=== PATIENT | female | born 1960 | race Caucasian/White ===

== ENCOUNTER 2019-12-24 13:20 | Inpatient (IN) | payer BC ==
[~2019-12-24] VITALS: Ht 165.1 cm; Wt 72.6 kg
[2019-12-24] MEDS ORDERED: TRAZODONE100 MG PO (14:52)
[2019-12-24] MEDS ORDERED: PANTOPRAZOLE SO20 MG PO (14:53)
[2019-12-24] MEDS ORDERED: DAILY VITAMIN1 EAC1 PO (14:53)
[2019-12-24] MEDS ORDERED: NATURE'S BLEND F1 MG PO (14:54)
[2019-12-24] MEDS ORDERED: NORVASC5 MG PO (14:55)
[2019-12-24] MEDS ORDERED: Synthroid,Levo75 MCG PO (14:55)
[2019-12-24] MEDS ORDERED: LAMICTAL200 MG PO (14:55)
[2019-12-24] MEDS ORDERED: ZOCOR20 MG PO (14:56)
[2019-12-24] MEDS ORDERED: ALBUTEROL SULFAT8 MG INH (14:57)
[2019-12-24 15:32] VITALS: BP 152/82
--- NOTE | 2019-12-24 15:32 | NUR ---
DR. GARCIA MADE AWARE OF NEW CONSULT FOR MEDICAL MANAGEMENT. STATES TO PLACE CONSULT UNDER DR. Carin LAZAR
--- NOTE | 2019-12-24 17:36 | NUR ---
P: PATIENT ANXIOUS, TEARFUL, HANDS SHAKING. MOOD LABILE. HYPERVENTILATING, PACING IN HALLWAY. I: ONE ON ONE TO EXPRESS FEELING, ENCOURAGED DEEP BREATHING EXERCISES. R: PRN ATIVAN 1MG GIVEN PO. BP 160/80. DR. GARAY NOTIFIED. RECHECK BP IN 1 HR. URINE COLLECTED AND SENT TO LAB. PATIENT IS ALERT TO PERSON, PLACE, TIME AND SITUATION; ABLE TO VOICE NEEDS. Q 15 MINUTE SAFETY CHECKS MAINATINED. MOOD IS LABILE, TEARFUL DURING ASSESSMENT. ANXIOUS. DENIES ANY HALLUCINATIONS DELUSIONS, HI/SI. RATE PAIN 6/10. REPOSITIONING TO ASSIST RELEIVE PAIN. NO ACTUAL PLAN FOR SI. JUST WANTS TO END TO EMOTIONAL PAIN AND FUSTRATION. ONE ON ONE EFFECTIVE. PATIENT PROVIDED WITH CHANGE OF CLOTHES AND WARM BLANKET; EFFECTIVE. INDPENDENT WITH ACTIVIES OF DAILY LIVING, CONTINENT OF BOWEL AND BLADDER. SET UP FOR MEALS, INTAKES ARE GOOD. INTERACTIVE WITH NURSING STAFF. P: CONTINUE TO MONITOR MOOD AND SUICIDAL IDEATIONS. PROVIDE ONE ON ONE FOR EMOTIONAL SUPPORT. CONTRACT FOR SAFETY.
--- NOTE | 2019-12-24 17:38 | NUR ---
TOR LEYVA a 59 year old F admitted via ambulance from the ADMITTING as a voluntary admission. Arrived on unit at 1520. ALLERGIES: PCN, SULFA. Vital signs are: [id number]/82. The client signed the following forms with stated understanding: Authorization For The Release of Medical Information, Clothing List, Consent to Voluntary Admission and Hospitalization, Consent and Release Forms/Receipt of Rights, Acknowledgement of Advance Directive Information, Behavioral Health Consent Form, and Informed Consent of Medications. Admitted under the services of Dr. MARY STEELE,[facility]. A search was conducted and hazardous articles were removed. Client was oriented to the unit. MAY PEGUERO
[2019-12-24 18:06] LABS: URINE AMPHETAMINES < 1000 (1000ng/ml); URINE BARBITURATES < 200 (200ng/ml); URINE BENZODIAZEPINES < 200 (200ng/ml); URINE CANNABINOIDS (THC) < 50 (50ng/ml); URINE COCAINE < 300 (300ng/ml); URINE METHADONE < 300 (300ng/ml); URINE OPIATES > 300 (300ng/ml)
[2019-12-24 18:13] LABS: URINE PHENCYCLIDINE < 25 (25ng/ml)
[2019-12-24 18:24] LABS: BILIRUBIN NEGATIVE (NEGATIVE); BLOOD TRACE-INTACT (NEGATIVE); CLARITY SL CLOUDY (CLEAR); COLOR YELLOW (YELLOW); GLUCOSE NEGATIVE (NEGATIVE); KETONE NEGATIVE (NEGATIVE); NITRITE NEGATIVE (NEGATIVE); SPECIFIC GRAVITY 1.025 (1.005-1.030); UROBILINOGEN 0.2 E.U./dl (0.2-1.0)
[2019-12-24 18:25] LABS: CALCIUM OXALATE CRYSTALS 2+; EPITHELIAL CELLS 16-20; LEUKO ESTERASE NEGATIVE (NEGATIVE)
[2019-12-24 18:26] LABS: BACTERIA 1+; MUCOUS 2+
--- NOTE | 2019-12-25 01:38 | NUR ---
Patient alert and oriented x4. Mood anxious. Patient denies HI/SI. Patient denies hallucinations at this time. No s/s of any responding to internal stimuli noted. Patient compliant with HS medications without any difficulty. Patient said "I don't want to kill myself,I just feel frustrated." Provided 1:1 for therapeutic communication and emotional support. Patient contracted for safety. Plan to continue to encourage medication compliance. Also continue to provide emotional support and allow patient to contract for safety. Will continue to monitor moods/behaviors. Q 15 minute safety checks continued and maintained. See [facility] flowsheet for further documentation.
--- NOTE | 2019-12-25 05:39 | NUR ---
Patient slept approx. 7 hours throughout shift. Q 15 minute safety checks continued and maintained.
[2019-12-25 07:10] LABS: BASO % 0.5 % (0.0-1.0); EOS # 0.1 10*3/uL (0.0-0.4); EOS % 1.4 % (1.0-4.0); HEMATOCRIT 39.7 % (37.0-47.0); HEMOGLOBIN 13.3 g/dl (12.0-16.0); LYMPH # 3.8 10*3/uL (1.3-4.4); LYMPH % 47.9 % (27.0-41.0); MEAN CELL VOLUME 100.5 fl (81.0-99.0); MEAN CORPUSCULAR HGB 33.7 pg (27.0-31.0); MEAN CORPUSCULAR HGB CONC 33.5 g/dl (33.0-37.0); MEAN PLATELET VOLUME 9.8 fl (9.6-12.3); MONO # 0.7 10*3/uL (0.1-1.0); MONO % 8.2 % (3.0-9.0); NEUT # 3.3 10*3/uL (2.3-7.9); NEUT % 41.6 % (47.0-73.0); PLATELET COUNT AUTOMATED 209 10*3/uL (130-400); RED BLOOD COUNT 3.95 10*6/uL (4.10-5.10); RED CELL DISTRI WIDTH 13.5 % (0-14.5); WHITE BLOOD COUNT 7.9 10*3/uL (4.8-10.8)
[2019-12-25 07:28] LABS: ALBUMIN 3.3 gm/dl (3.1-4.5); ALKALINE PHOSPHATASE 39 U/L (45-117); BUN 22 mg/dl (7-24); CHLORIDE 110 mmol/L (98-107); CHOLESTEROL 216 mg/dL (<200); CREATININE 0.91 mg/dL (0.55-1.02); POTASSIUM 3.9 mmol/L (3.5-5.1); SGOT/AST 47 IU/L (3-35); SGPT/ALT 74 U/L (12-78); SODIUM 143 mmol/L (136-145); TOTAL PROTEIN 7.2 gm/dL (6.4-8.2); TRIGLYCERIDES 170 mg/dl (<150); VLDL CHOLESTEROL 34 mg/dL (6-40)
[2019-12-25 07:36] LABS: HDL CHOLESTEROL 104 mg/dl (40-60); LDL CHOLESTEROL 78 mg/dL (9-159); THYROID STIM HORMONE (HS) 0.413 uIU/ml (0.358-4.75)
[2019-12-25 07:52] VITALS: BP 141/76
--- NOTE | 2019-12-25 08:00 | NUR ---
Treatment Plan meeting was held with Dr. Self, LANE Huitron, RN, AT, VICE PRESIDENT OF FINANCE-S and Correspondent. Plan for discharge Next week unless Pt. requests earlier discharge then Possible /Wednesday.
--- NOTE | 2019-12-25 11:52 | NUR ---
AM GROUP ASSESSED PT AND HAD A LENGTHY 1:1 WHERE PT VENTED AND WAS GIVEN THE OPPORTUNITY TO TALK. PT DID NOT ATTEND THE MORNING GROUP BUT STAYED IN HER ROOM STATING THAT SHE WAS TIRED.
--- NOTE | 2019-12-25 12:23 | NUR ---
PT REQUESTED IMMODIUM THRESS TIMES A DAY. AND A LIDOCAINE PATCH. PT STATED SHE IS HAVING BACK PAIN RATED 9 OUT OF 10. TYLENOL 650MG PROVIDED. DR LEWIS INFORMED OF PT'S REQUESTS. PT STATED SHE TAKES 1600MG ALEVE AT ONE TIME AT HOME. MEDICATION EDUCATION PROVIDED.
--- NOTE | 2019-12-25 13:59 | NUR ---
Started inpatient mental health authorization. Pending ref # [id number]. Confidential voicemail with initial clinical left for Yuliana at [phone]. Awaiting return call.
--- NOTE | 2019-12-25 14:27 | NUR ---
Spoke to Yuliana at [facility]. IP 4 days jorge. Auth # [id number]. NRD 12/27.
[2019-12-25 15:13] LABS: VITAMIN D, 25-HYDROXY 30.3 ng/mL (30-100)
--- NOTE | 2019-12-25 15:42 | NUR ---
PM GROUP PT ATTENDED AND PARTICIPATED IN ALL GROUP ACTIVITIES. PT WAS TALKATIVE AND ON TASK. PT EXPRESSED NO SUICIDAL IDEATIONS WHILE IN GROUP.
--- NOTE | 2019-12-25 15:46 | NUR ---
P: SOMATIC COMPLAINTS DIARRHEA, PAIN. PT STATED SHE TOOK 1600MG IBUPROFEN AT A A TIME. STATED HE HAD 6 BOWEL MOVEMENTS TODAY AND REQUESTED IMMODIUM. I: PROVIDED 1:1 FOR THERAPEUTIC COMMUNICATIONS. MEDICATION EDUCATION COMPLETED. EXPLAINED TO PT WE NEED TO SEE BOWEL MOVEMENTS BEFORE MEDICATION CAN BE GIVEN. REDIRECTED. PRN TYLENOL GIVEN OR PAIN. OFFERED NONPHARMACOLOGICAL INTERVENTIONS FOR PT TO TRY TO REDUCE PAIN. MONITOR BEHAVIORS WITH Q15 MINUTE SAFETY CHECKS. R: PT DID TRY NONPHARMACOLOGICAL INTERVENTIONS. PT HAS HAD NO FURTHER COMPLAINTS OF PAIN OR DIARRHEA. P: CONTINUE TO OFFER MEDICATION EDUCATION. PROVIDE 1:1 FOR THERAPEUTIC COMMUNICATION. CONTINUE TO MONITOR BOWEL MOVEMENTS. CONTINUE TO MONITOR BEHAVIORS WITH Q15 MINUTE SAFETY CHECKS. SEE [facility] FLOWSHEET FOR SPECIFIC MONITORING.
[2019-12-25 19:47] VITALS: BP 142/78
--- NOTE | 2019-12-25 20:42 | NUR ---
EVENING/POSITIVE SELF-TALK PT ATTENDED AND PARTICIPATED IN ALL ACTIVITY. PT PLEASANT AND ON TASK WITH NO SUICIDAL IDEATIONS EXPRESSED AT THIS TIME. PT WILL CONTINUE TO ATTEND AND PARTICIPATE IN FUTRUE GROUP SESSIONS TO BEST OF PT ABILITY.
--- NOTE | 2019-12-25 22:31 | NUR ---
AWOKE HAVING ANXIETY ATTACK. SWINGING ARMS, RUBBING ARMS AND PACING. UNKNOWN REASON FOR ANXIETY. PACING IN DININGROOM NOW. WILL MONITOR
--- NOTE | 2019-12-25 23:50 | NUR ---
ATIVAN APPEARS EFFECTIVE. RESTING QUIET IN BED WITH EYES CLOSED
--- NOTE | 2019-12-26 01:56 | NUR ---
24 HR chart check completed.
[2019-12-26 07:47] VITALS: BP 133/75
--- NOTE | 2019-12-26 08:00 | NUR ---
Treatment Plan meeting was held with Dr. Self, RN, AT, ACCOUNT DEVELOPMENT REPRESENTATIVE-S and Log Chain Worker. Plan for discharge at the end of the week or Next week depending on Stability. Pt. will return home with Follow Up.
--- NOTE | 2019-12-26 08:34 | NUR ---
DR LEWIS ON UNIT TO ASSESS PT, UPDATE PROVIDED.
--- NOTE | 2019-12-26 09:36 | NUR ---
PATIENT RECIEVED THIAMINE 100MG IM IN RIGHT DELTOID AND TOLERATED WELL.
--- NOTE | 2019-12-26 11:39 | NUR ---
AM GROUP/MUSIC THERAPY PT CHOSE NOT TO ATTEND MORNING GROUP THERAPY. PT WAS IN BED RESTING.
--- NOTE | 2019-12-26 12:11 | NUR ---
P: PT MOOD IS DEPRESSED. PT INTERMITTENTLY TEARFUL. PT ISOLATIVE TO SELF AT TIMES. PT REPORTS FEELING ANXIOUS AT TIMES. I: PROVIDE EMOTIONAL SUPPORT AND 1:1 FOR PT TO VOICE FEELING, ENCOURAGE MED COMPLIANCE AMD PROVIDE MED EDUCATION, ENCOURAGE GROUP PARTICIPATION AND SOCIALIZATION, PROVIDE LOW STIUALTION ENVIRONMENT FOR PT TO CALM. R: PT ALERT TO PERSON, PLACE, TIME AND SITUTION. PT MED COMPLIANT WITHOUT DIFFICULTY, MED EDUCATION PROVIDED. PT CALM, MOOD REMAINS DEPRESSED. PT REMAINS INTERMITTENTLY TEARFUL. NO HALLUCINATIONS OR DELUSIONS NOTED. PT DENIES ANY SUICIDAL THOUGHTS. PT AMBULATORY THROGHOUT UNIT, GAIT STEADY. PT CONTINENT OF BOWEL AND BLADDER. P: MONITOR PT BEHAVIORS ON Q15 MIN SAFETY CHECKS, ENCOURAGE MED COMPLAINCE AND PROVIDE MED EDUCATION, PROVIDE EMOTIONAL SUPPORT AND 1:1 FOR PT TO VOICE FEELINGS, ENCOURAGE GROUP PARTICIPATION AND SOCIALIZATION.
--- NOTE | 2019-12-26 15:17 | NUR ---
Group therapy this afternoon. Discussed life stressors, negative coping skills, and positive coping skills. Patients named positive coping skills. Provided education about the benefits of positive coping skills. Hand-outs were also provided. Pt participated fully in the discussion. She displayed intermittent tearfulness as she shared. Pt was supportive of her peers. She was able to name several positive coping skills.
--- NOTE | 2019-12-26 15:37 | NUR ---
PM GROUP PT DID NOT ATTEND AFTERNOON GROUP THERAPY. PT WAS IN A SESSION WITH VACUUM APPLICATOR OPERATOR.
[2019-12-26 19:49] VITALS: BP 146/79
--- NOTE | 2019-12-26 20:37 | NUR ---
EVENING/MUSIC/YAHTZEE PT ATTENEDED AND PARTICIPATED IN ALL ACTIVITY. PT TEARFUL ON AND OFF THORUGHOUT GROUP STATING "I'VE BEEN WEEPY TODAY". PT EASILY ON BACK ON TASK AND LAUGHING WITH PEERS AFTER TEARFUL SPURTS. PT WILL CONTINUE TO ATTEND AN DPARTICIPATE IN FUTRUE GROUP SESSIONS TO THE BEST OF ABILITY.
--- NOTE | 2019-12-26 22:12 | NUR ---
NO ADVERSE BEHAVIORS NOTED. PATIENT ALERT AND ORIENTED X4. PT CALM, COOPERATIVE, AND INTERACTIVE. PT SAT IN DINING ROOM WITH PEERS TO WATCH A MOVIE AND HAD SNACK. DURING 1:1 PATIENT STATED THAT SHE WAS DOING OKAY TODAY WITH NO COMPLAINTS. PT DENIES SUICIDAL IDEATIONS, PT INFORMED THAT IF THOUGHTS ARISE TO HARM SELF TO NOTIFY STAFF, PT CONTRACTED FOR SAFETY. PT ALSO DENIES HI, HALLUCINATIONS, OR PAIN. PT MEDICATION COMPLIANT WITHOUT DIFFICULTY AFTER REVIEW. PT CURRENTLY LAYING DOWN WITH EYES CLOSED, RESPIRATIONS EASY AND REGULAR, NO SIGNS OR SYMPTOMS OF DISTRESS NOTED. PLAN IS TO CONTINUE MONITOR MOOD AND BEHAVIORS. PROVIDE 1:1 WITH THERAPEUTIC INTERVENTIONS. PROVIDE EMOTIONAL SUPPORT NEEDED. ENCOURAGE MEDICATION COMPLIANCE AND EDUCATE. MAINTAIN Q 15 MIN CHECKS.
--- NOTE | 2019-12-26 23:49 | NUR ---
24 HOUR CHART CHECK COMPLETED.
--- NOTE | 2019-12-27 08:00 | NUR ---
Treatment Plan meeting was held with Dr. Self RN, SOLVENT MIXER-S and Used Car Make Ready Mechanic. Plan for discharge Wednesday/Wednesday depending on Stablility.
[2019-12-27 08:06] VITALS: BP 147/77
--- NOTE | 2019-12-27 08:31 | NUR ---
DR LEWIS ON UNIT TO ASSESS PT, UPDATE PROVIDED.
--- NOTE | 2019-12-27 12:47 | NUR ---
Met with pt individually. Pt reports that she can notice a difference in her mood and feels that she is doing better. Pt asked about applying for Social Security disability. Educated pt about the process. Pt voiced understanding. Pt spoke about her marriage. Discussed pt's ability to change herself and not others. Discussed pt focusing on beating her dependence on ETOH, self-care, and working on improving herself. Offered to pt that as pt's emotional state improves and pt feels better about herself, it should become more clear to pt what she truly wants for her future. Pt voiced understanding. When asked, pt shared that she believes that she has a good counselor that pt is working with in the community.
--- NOTE | 2019-12-27 14:49 | NUR ---
Continued review stay clinical left on confidential voicemail for Yuliana duckworth [place]. Awaiting response.
--- NOTE | 2019-12-27 17:03 | NUR ---
NO ADVERSE MOODS OR BEHAVIORS NOTED AT THIS TIME. PT ALERT TO PERSON, PLACE, TIME AND SITUATION. PT CLAM, MOOD IS STABLE. PT PLEASANT, INTEARACTIVE WITH STAFF AND PEERS. NO HALLUCINATIONS OR DELUSIONS NOTED. PT DENIES ANY SUICIDAL THOUGHTS. PT AMBULATORY THROUGHOUT UNIT, GAIT STEADY. PT CONTINENT OF BOWEL AND BLADDER. PLAN IS TO MONITOR PT BEHAVIORS ON Q15 MIN SAFETY CHECKS, ENCOURAGE MED COMPLIANCE AND PROVIDE MED EDUCATION, PROVIDE EMOTIONAL SUPPORT AND 1:1 FOR PT TO VOICE FEELINGS, ECNOURAGE GROUP PARTICIPATION AND SOCIALIZATION.
[2019-12-27 19:47] VITALS: BP 146/76
--- NOTE | 2019-12-27 23:00 | NUR ---
PT SOMATIC. RECEIVED HS MEDICATIONS, WALKING UP AND DOWN HALLS, STATES "I AM STUMBLING AND I FEEL LIKE I HAVE BUBBLES IN MY MOUTH". PT ENCOURAGED TO SIT DOWN AND REST AND CONSUME FLUIDS. PT STATES SHE IS FEELING BETTER. PT CURRENTLY DENYING ANXIOUSNESS, DEPRESSED MOOD. STATES "I REALLY FEEL GOOD". WILL CONTINUE TO MONITOR PT FOR CHANGE IN CONDITION. WILL CONTINUE TO MONITOR MOODS AND BEHAVIORS. Q15 MIN MONITORING PER POLICY FOR SAFETY.
--- NOTE | 2019-12-28 05:42 | NUR ---
pt slept approximately 7 hours this shift
--- NOTE | 2019-12-28 08:00 | NUR ---
Treatment Plan meeting was held with Dr. Self, RN, AT, PROP DRAWER-S and Negative Cleaner in attendance. Plan for discharge Wed/Wednesday when Stable.
[2019-12-28 08:18] VITALS: BP 152/72
--- NOTE | 2019-12-28 10:30 | NUR ---
ADVISED THIS RN THAT PT REPORTED TO HIM THAT LAST EVENING SHE EXPERIENCED A PERIOD OF TIME WHERE HER HEART WAS RACING AND "RADIATING INTO HER JAW" WELL LIGHT HEADEDNESS. PT STATED TO THAT SHE DID NOT REPORT THIS TO RECOOPERER STAFF AND THAT WHEN THEY CHECKED HER VITALS AT UNIT ROUTINE INTERVALS THEY WERE WNL. STATES THESE SYMPTOMS COULD BE ANXIETY RELATED BUT REQUESTS THIS RN CONTACT INTERNAL MEDICINE HOSPITALIST AND MAKE AWARE OF THE ABOVE. CALL PLACED TO , RESIDENT WORKING WITH TODAY AND MADE AWARE OF THE ABOVE.
--- NOTE | 2019-12-28 11:48 | NUR ---
AM GROUP PT WAS IN A PRIVATE GROUP WITH LIKE PEERS WITH THE SECURITY INCIDENT RESPONSE SPECIALIST.
--- NOTE | 2019-12-28 12:01 | NUR ---
SPOKE WITH DR MCGOWAN AT [phone] RE: PT TROPONIN LEVELS ARE NEGATIVE AND KG RESULTS ARE IN THE COMPUTER FOR REVIEW.
--- NOTE | 2019-12-28 14:38 | NUR ---
P- PT C/O "BUBBLING IN MY MOUTH" AND "SLURRED WORDS". I- ORIENTATION, MOOD AND BEHAVIORS ASSESSED. ASSESSED PT FOR SI/HI, INTENT OR PLAN. ASSESSED PT FOR S/S HALLUCINATIONS, PARANOIA AND/OR DELUSIONS. MEDICATIONS ADMINISTRATIONS PER PHYSICIAN'S ORDERS. ASSISTANCE WITH ADL CARE PROVIDED NEEDED. ENCOURAGED PT TO ATTEND AND PARTICIPATE IN [facility] GROUPS AND ACTIVITIES. R- PT IS ALERT AND ORIENTED X4. MEMORY INTACT. RESPS EASY AND EVEN ON ROOM AIR. MOOD IS STABLE, AFFECT BROAD RANGE AND APPRROPRIATE. PT DENIES FEELING SAD, DEPRESSED OR ANXIOUS. PT STATES "I FEEL REALLY GOOD, I'M REALLY HAPPY". PT DENIES SI/HI, INTENT OR PLAN. CONTRACTS FOR SAFETY. PT DENIES HALLUCINATIONS, NO RESPONSE TO INTERNAL STIMULI NOTED. NO PARANOIA OR DELUSIONS NOTED. MED COMPLIANT WITHOUT DIFFICULTY. INTERACTS APPROPRIATELY WITH STAFF AND PEERS. NO SLURRING OF WORDS OF BUBBLING OF THE MOUTH NOTED PER PT REPORT. AND ARE AWARE OF PT'S COMPLAINTS. LABS ORDERED FOR TOMORROW AM. NO DISTRESS NOTED. P- PLAN TO CONTINUE CURRENT TREATMENT, CONTINUE TO MONITOR MOOD AND BEHAVIORS, PROVIDE APPROPRIATE REORIENTATION, REDIRECTION AND 1:1 NEEDED. CONTINUE TO ENCOURAGE MEDICATION COMPLIANCE WELL GROUP ATTENDANCE AND PARTICIPATION.
--- NOTE | 2019-12-28 15:41 | NUR ---
PM GROUP PT ATTENDED AND PARTICIPATED IN ALL ACTIVITIES FOR AFTERNOON GROUP. PT WAS LAUGHING AND JOKING WITH PEERS AND STAFF AND EXPRESSED NO ANXIETY OR SUICIDAL IDEATIONS.
--- NOTE | 2019-12-28 15:53 | NUR ---
Group therapy this AM. Pt partcipated fully in discussion about gratitude and the power of thankfulness. Discussed principles of gratitude and action to incorporate the principles. Discussed the use of a gratitude journal. Hand-outs provided and gratitude sheets provided. Pt was supportive of her peers.
[2019-12-28 20:00] VITALS: BP 137/75
--- NOTE | 2019-12-28 21:44 | NUR ---
PATIENT ALERT AND ORIENTED. PATIENT WITH WITH SHORT TERM OR MACHINIST INSTRUCTOR MEMORY DEFICITS. PATIENT WITH NO RESPIRATORY DISTRESS. PATIENT STATING "I FEEL A LOT BETTER TODAY". PATIENT MEDICATION COMPLIANT. PATIENT WITH NO HALLUCINATIONS OR DELUSIONS. PATIENT WITH NO SUICIDAL OR HOMICIDAL IDEATIONS. PATIENT REFUSED NOURISHMENT AT HS BUT PROVIDED FLUIDS. PATIENT AMBULATORY ON UNIT WITH STEADY GAIT AND WITHOUT ASSISTIVE DEVICE. PATIENT STABLE WITH NO COMPLIANTS AT HS. SEE [facility] FLOW SHEET FOR SPECIFIC MONITORING
--- NOTE | 2019-12-29 05:56 | NUR ---
PATIENT SLEPT 8 HOURS OF UNINTERRUPTED SLEEP THROUGHOUT SHIFT. Q 15 MINUTE CHECKS MAINTAINED. 24 HR chart check completed.
[2019-12-29 06:22] LABS: BASO # 0.1 10*3/uL (0.0-0.1); BASO % 0.7 % (0.0-1.0); EOS # 0.1 10*3/uL (0.0-0.4); EOS % 1.6 % (1.0-4.0); HEMATOCRIT 37.9 % (37.0-47.0); HEMOGLOBIN 12.7 g/dl (12.0-16.0); LYMPH # 2.8 10*3/uL (1.3-4.4); LYMPH % 38.1 % (27.0-41.0); MEAN CELL VOLUME 101.3 fl (81.0-99.0); MEAN CORPUSCULAR HGB CONC 33.5 g/dl (33.0-37.0); MEAN PLATELET VOLUME 9.9 fl (9.6-12.3); MONO # 0.7 10*3/uL (0.1-1.0); MONO % 8.8 % (3.0-9.0); NEUT # 3.7 10*3/uL (2.3-7.9); NEUT % 50.5 % (47.0-73.0); PLATELET COUNT AUTOMATED 211 10*3/uL (130-400); RED BLOOD COUNT 3.74 10*6/uL (4.10-5.10); RED CELL DISTRI WIDTH 13.2 % (0-14.5); WHITE BLOOD COUNT 7.4 10*3/uL (4.8-10.8)
[2019-12-29 06:54] LABS: BUN 18 mg/dl (7-24); CHLORIDE 109 mmol/L (98-107); CREATININE 0.84 mg/dL (0.55-1.02); POTASSIUM 3.9 mmol/L (3.5-5.1); SODIUM 142 mmol/L (136-145)
--- NOTE | 2019-12-29 08:00 | NUR ---
Treatment Plan meeting was held with LANE Huitron, RN, AT, HEAD OF SCIENCE-S and Early Childhood Lead Teacher. Plan for discharge Wednesday with return home and follow up scheduled.
[2019-12-29 08:17] VITALS: BP 148/78
--- NOTE | 2019-12-29 11:48 | NUR ---
AM GROUP PT ATTENDED MORNING GROUP THERAPY AND PARTICIPATED IN ALL ACTIVITIES. PT WAS ENGAGED AND ON TOPIC. PT EXPRESSED NO SUICIDAL IDEATIONS WHILE IN GROUP.
--- NOTE | 2019-12-29 13:37 | NUR ---
Group session co-facilitated with Destiny Moore, administrative services coordinator. Topic of group: Ria's Day, types of love, and self-love/self-care. Pt attended and participated fully. Pt shared openly and was supportive of her peers. Pt is future-oriented as she spoke of plans of continuing to work on improving her emotional state and mental health when she returns home.
--- NOTE | 2019-12-29 14:29 | NUR ---
PATIENT IS ALERT AND ORIENT TO PERSON, PLACE, TIME AND SITUATION; ABLE TO VOICE NEEDS. MOOD IS STABLE. DENIES ANY HALLUCINATIONS, DELUSIONS, HI/SI OR PAIN. NO RESPONSE TO INTERNAL STIMULI. MEDICATION COMPLAINT. Q 15 MINUTE SAFETY CHECKS MAINTAINED. INTERACTIVE WITH STAFF AND OTHERS PATIENTS. PARTICIPATES IN GROUP SESSION. INDPENDENT WITH ACTIVITIES OF DAILY LIVING, CONTINENT OF BOWEL AND BLADDER, SET UP FOR MEALS, INTAKES ARE GOOD WITH ADEQUATE FLUIDS. AMBULATORY WITH STEADY GAIT. CONTINUE TO MONITOR FOR SUICIDAL IDEATIONS AND DEPRESSED MOOD.
--- NOTE | 2019-12-29 14:59 | NUR ---
Continued review stay clinical left on Yuliana at [facility] confidential voicemail.
--- NOTE | 2019-12-29 15:21 | NUR ---
IP 1 additional day jorge per Yuliana at [facility]. NRD 12/30
--- NOTE | 2019-12-29 15:33 | NUR ---
PM GROUP PT ATTENDED AFTERNOON GROUP THERAPY AND PARTICIPATED IN ALL ACTIVITIES. PT EXPRESSED NO SUICIDAL IDEATIONS WHILE IN GROUP
--- NOTE | 2019-12-29 15:46 | NUR ---
Shift chart check completed.
[2019-12-29 20:13] VITALS: BP 139/77
--- NOTE | 2019-12-30 01:01 | NUR ---
NO ADVERSE BEHAVIORS NOTED. PATIENT ALERT AND ORIENTED X4. PT CALM, COOPERATIVE, AND INTERACTIVE. PT SAT IN DINING ROOM WITH PEERS TO WATCH A MOVIE AND HAD SNACK. DURING 1:1 PATIENT STATED THAT SHE WAS DOING OKAY TODAY, READY TO GO HOME. PT DENIES SUICIDAL IDEATIONS, PT INFORMED THAT IF THOUGHTS ARISE TO HARM SELF TO NOTIFY STAFF, PT CONTRACTED FOR SAFETY. PT ALSO DENIES HI, HALLUCINATIONS, OR PAIN. PT MEDICATION COMPLIANT WITHOUT DIFFICULTY AFTER REVIEW. PT CURRENTLY LAYING DOWN WITH EYES CLOSED, RESPIRATIONS EASY AND REGULAR, NO SIGNS OR SYMPTOMS OF DISTRESS NOTED. PLAN IS TO CONTINUE MONITOR MOOD AND BEHAVIORS. PROVIDE 1:1 WITH THERAPEUTIC INTERVENTIONS. PROVIDE EMOTIONAL SUPPORT NEEDED. ENCOURAGE MEDICATION COMPLIANCE AND EDUCATE. MAINTAIN Q 15 MIN CHECKS.
--- NOTE | 2019-12-30 05:28 | NUR ---
24 HOUR CHART CHECK COMPLETED.
--- NOTE | 2019-12-30 06:02 | NUR ---
PATIENT OBSERVED ON Q 15 MIN CHECKS TO HAVE SLEPT APPROX 7 HOURS THROUGHOUT THE NIGHT WITH NO AWAKENINGS OR SIGNS AND SYMPTOMS OF DISTRESS NOTED.
[2019-12-30 07:50] VITALS: BP 138/70; BP 167/80
--- NOTE | 2019-12-30 08:04 | NUR ---
Patient eating breakfast in dining room with peers at this time. Respirations easy and regular. Vital signs stable. No overt distress. CHANELL MALLOY PMJOSE- ON UNIT TO SEE PT AT THIS TIME. UPDATE GIVEN.
--- NOTE | 2019-12-30 08:50 | NUR ---
ON UNIT TO SEE PT AT THIS TIME.
--- NOTE | 2019-12-30 11:56 | NUR ---
AM GROUP/AFFIRMATIONS/MUSIC PT ATTENDED AND PARTICIPATED IN GROUP. PT PLEASANT AND ON TASK WITH NO S.I. EXPRESSED AT THIS TIME.
--- NOTE | 2019-12-30 12:32 | NUR ---
P- PT STATES SHE IS FEELING "REALLY GOOD, I THINK I'M READY TO GO HOME SOON". HOWEVER, PT REPORTS CONTINUED DIFFICULTY SLEEPING. PT STATES "I HAVEN'T SLEPT WELL FOR PROBABLY A YEAR". I- ORIENTATION, MOOD AND BEHAVIORS ASSESSED. ASSESSED PT FOR SI/HI, INTENT OR PLAN. ASSESSED PT FOR S/S HALLUCINATIONS, PARANOIA AND/OR DELUSIONS. MEDICATIONS ADMINISTERED PER PHYSICIAN'S ORDERS. ASSISTANCE WITH ADL CARE PROVIDED NEEDED. ENCOURAGED PT TO ATTEND AND PARTICIPATE IN [facility] MILIEU GROUPS AND ACTIVITIES. R- PT IS ALERT AND ORIENTED X4. MEMORY INTACT. RESPS EASY AND EVEN ON ROOM AIR. MOOD STABLE, AFFECT BROAD RANGE AND APPROPRIATE. SPEECH IS WNL AND COHERENT, ABLE TO MAKE NEEDS KNOWN WITHOUT DIFFICULTY. PT DENIES SI/HI, INTENT OR PLAN. PT DENIES HALLUCINATIONS, NO RESPONSE TO INTERNAL STIMULI NOTED. NO PARANOIA OR DELUSIONS NOTED. PT STATES SHE FEELS "REALLY GOOD" AND STATES "I THINK I'M READY TO GO HOME SOON". PT DID REPORT POOR SLEEP WHICH SHE STATES HAS BEEN A CHRONIC PROBLEM FOR OVER A YEAR. PT DISCUSSED THIS CONCERN WITH [facility]- WITH NEW MEDICATION ORDER GIVEN FOR HS TO AIDE WITH SLEEP. PT DENIES ANY OTHER COMPLAINTS OR CONCERNS. PT IS AMBULATORY WITH STEADY GAIT, INDEPENDENT WITH ADLS, CONTINENT OF BOWEL AND BLADDER. INTERACTS WELL WITH STAFF AND PEERS. NO DISTRESS NOTED. P- PLAN TO CONTINUE CURRENT TREATMENT, CONTINUE TO MONITOR MOOD AND BEHAVIORS, PROVIDE APPROPRIATE REORIENTATION, REDIRECTION AND 1:1 NEEDED. CONTINUE TO ENCOURAGE MEDICATION COMPLIANCE WELL GROUP ATTENDANCE AND PARTICIPATION.
--- NOTE | 2019-12-30 15:55 | NUR ---
PM GROUP/AFFIRMATIONS/MOVIE PT ATTENDED AND PARTICIPATED IN ALL GROUP ACTIVITY'S. PT PLEASANT AND ON TASK WITH NO S.I. EXPRESSED AT THIS TIME.
[2019-12-30 20:00] VITALS: BP 143/72
--- NOTE | 2019-12-30 22:59 | NUR ---
P--DEPRESSION I--REVIEWED MEDICATIONS. STAFF PROVIDED SNACK AND FLUIDS. OFFERED 1:1 TIME. PROVIDED EMOTIONAL SUPPORT NEEDED R--I FEEL REALLLY GOOD. READY TO GO HOME. I HAD ANOTHER GOOD DAY. P--MONITOR FOR CHANGES IN MOOD/BEHAVIOR. MONITOR Q 15 MINUTES AND PRN FOR SAFETY.
--- NOTE | 2019-12-31 01:27 | NUR ---
24 HR chart check completed.
[2019-12-31 08:00] VITALS: BP 146/70
--- NOTE | 2019-12-31 12:13 | NUR ---
AM GROUP/LEISURE SKILLS PT ATTENDED AND PARTICIPATED IN ALL GROUP ACTIVITY. PT PLEASANT AND ON TASK WITH NO SUICIDAL IDEATIONS EXPRESSED.
--- NOTE | 2019-12-31 18:21 | NUR ---
NO ADVERSE BEHAVIORS NOTED THIS SHIFT. BEHAVIORS MONITORED WITH Q15 MINUTE SAFETY CHECKS. SEE [facility] FLOWSHEET FOR SPECIFIC MONITORING.
[2019-12-31 19:51] VITALS: BP 157/72
--- NOTE | 2019-12-31 21:36 | NUR ---
P--DEPRESSION RESOLVED I- 1:1 ABOUT LEAVING TOMORROW AND SETTING PLANS FOR DAILY INTERATION WITH OTHERS. REVIEWED COPING SKILLS TO USE AT HOME. EMOTIONAL SUPPORT PROVIDED REVIEWED MEDICATIONS. SNACK R-- I AM SO EXCITED TO GO HOME. I HAVE MY PLANS SET UP. I LOVE TO WATCH SOAPS. DENIES SUICIDAL IDEATIONS OR DEPRESSIVE STATE P--MONITOR FOR CHANGES IN BEHAVIOR/MOOD AND Q15 MINS AND PRN FOR SAFETY
--- NOTE | 2020-01-01 02:12 | NUR ---
24 HR chart check completed.
[2020-01-01] MEDS ORDERED: ROZEREM8 MG PO (07:35)
[2020-01-01] MEDS ORDERED: TIZANIDINE HCL4 MG PO (07:35)
[2020-01-01] MEDS ORDERED: VITAMIN B-1100 M1 PO (07:35)
[2020-01-01] MEDS ORDERED: LAMOTRIGINE100 MG PO (07:35)
[2020-01-01] MEDS ORDERED: HYDROXYZINE PAM25 M1 PO (07:35)
[2020-01-01] MEDS ORDERED: MIRTAZAPINE15 M2 PO (07:35)
[2020-01-01] MEDS ORDERED: MINIPRESS1 M1 PO (07:35)
[2020-01-01 07:44] VITALS: BP 150/71
--- NOTE | 2020-01-01 07:45 | NUR ---
Patient eating breakfast in dining room with peers at this time. Pt offers no complaints. Respirations easy and regular. Vital signs stable. No overt distress. [facility] on unit to see pt at this time, update given.
--- NOTE | 2020-01-01 08:00 | NUR ---
Treatment Plan meeting was held with LANE Huitron, RN, AT, SENIOR STOCK PLAN ADMINISTRATOR-S and Cafeteria Monitor. Plan for discharge today with return home. Follow Up appointments have been scheduled.
--- NOTE | 2020-01-01 08:20 | NUR ---
ON UNIT TO SEE PT AT THIS TIME. MADE AWARE OF DISCHARGE FOR TODAY AROUND 11AM.
[2020-01-01] MEDS ORDERED: PANTOPRAZOLE SO40 MG PO (08:32)
--- NOTE | 2020-01-01 10:20 | NUR ---
NO ADVERSE MOODS OR BEHAVIORS THIS SHIFT. PT IS ALERT AND ORIENTED X4. MEMORY INTACT. RESPS EASY AND EVEN ON ROOM AIR. PT STATES HER MOOD "REALLY GOOD, REALLY HAPPY". PT DENIES FEELING SAD, DEPRESSED OR ANXIOUS. DENIES SI/HI, INTENT OR PLAN. DENIES HALLUCINATIONS, NO RESPONSE TO INTERNAL STIMULI NOTED. NO PARANOIA OR DELUSIONS NOTED. PT STATES SHE IS READY FOR DISCHARGE. PT IS SCHEDULED FOR DISCHARGE TODAY. DISCHARGE PAPERWORK COMPLETED AND REVIEWED WITH PT WITH PT'S STATED UNDERSTANDING OF ALL. ALL QUESTIONS ANSWERED. NO DISTRESS NOTED. Q15 MIN MONITORING CONTINUES PER POLICY.
--- NOTE | 2020-01-01 11:10 | NUR ---
Discharge instructions reviewed with patient/family. Patient receptive and verbalizes understanding. Follow-up care arranged. Written instructions given to patient/family. CHANELL MALLOY pt left the unit in stable condition at 11:10am via wheelchair escort with [facility]. all personal belongings were sent with the pt.
--- NOTE | 2020-01-01 14:37 | NUR ---
Patient discharged today to home with her . Follow-up was scheduled with [facility] practicing with psychiatrist Dr Pacheco. An attempt was made to schedule counseling for pt in the same mental health office. However, Dr Pacheco must first evaluate pt for need. While at [facility], pt's mood improved and anxiety lessened. Pt was future-oriented at time of discharge. Pt participated in programming and was social with peers and staff.
--- NOTE | 2020-01-01 15:43 | NUR ---
Left continued review stay and discharge clinical on the confidential voicemail of Yuliana duckworth [place]. Awaiting return call. LCD 12/29. Ref # [id number]
--- NOTE | 2020-01-02 07:17 | NUR ---
Received VM from Yuliana at [facility]. Returned call and left continued review stay clinical and discharge appt details of her confidential voicemail. Awaiting return call.
--- NOTE | 2020-01-02 11:44 | NUR ---
Received VM from Yuliana at [facility] regarding patient needing to go for peer to peer, [facility] 12/29. Awaiting call to set up peer to peer. Received VM from [facility] to set up peer to peer. Returned call to [facility]. Peer to peer set up for tomorrow 01/03 at 1pm. 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
--- NOTE | 2020-01-05 10:58 | NUR ---
Received call from Yuliana [facility] [place]. Discharge clinical given.
== END 2020-01-01 11:10 | disposition home or self-care (01) | DRG 885 ==
LOC: 3N 13:20
PROVIDERS: Family Medicine; ADMIT Psychiatry & Neurology Psychiatry
DX: F33.2 Major depressive disorder, recurrent severe without psychotic features (principal); R45.851 Suicidal ideations; K50.90 Crohn's disease, unspecified, without complications; F11.10 Opioid abuse, uncomplicated; F17.210 Nicotine dependence, cigarettes, uncomplicated; E87.6 Hypokalemia; J44.9 Chronic obstructive pulmonary disease, unspecified; M19.90 Unspecified osteoarthritis, unspecified site; K21.9 Gastro-esophageal reflux disease without esophagitis; F10.20 Alcohol dependence, uncomplicated; Y90.9 Presence of alcohol in blood, level not specified; F41.9 Anxiety disorder, unspecified; I10 Essential (primary) hypertension; E78.5 Hyperlipidemia, unspecified; E03.9 Hypothyroidism, unspecified; M81.0 Age-related osteoporosis without current pathological fracture; Z71.6 Tobacco abuse counseling; Z90.49 Acquired absence of other specified parts of digestive tract; Z98.51 Tubal ligation status; Z82.49 Family history of ischemic heart disease and other diseases of the circulatory system; Z82.3 Family history of stroke; Z80.9 Family history of malignant neoplasm, unspecified; Z79.899 Other long term (current) drug therapy